=== PATIENT | male | born 1990 | race Caucasian/White ===

== ENCOUNTER → 2022-02-12 | Emergency (ER) | payer SELFPAY ==
[~2022-02-12] VITALS: Ht 172.7 cm; Wt 68.0 kg
[~2022-02-12] MED LIST: CEPH-548 PO; SULF1TAB48 PO; VANCOMYCIN HCL 1,000 MG in NS 250 ML IV ONE
== END | disposition left against medical advice (07) ==
LOC: SED 16:34
DX: L03.116 Cellulitis of left lower limb (principal); L03.115 Cellulitis of right lower limb; Z79.899 Other long term (current) drug therapy
CPT/HCPCS: 99283

== ENCOUNTER 2024-02-28 03:39 | Emergency (ER) | payer OTHER ==
[~2024-02-28] VITALS: Ht 175.3 cm; Wt 81.6 kg
[~2024-02-28 03:39] MED LIST changes: -VANCOMYCIN HCL 1,000 MG in NS 250 ML IV ONE
[2024-02-28 03:55] VITALS: BP_SYST 136; PULSE 85; RESP 18; TEMP 98.5; O2SAT 97
[2024-02-28 08:19] LABS: BARBITURATE, URINE NEGATIVE (NEG <=200); BENZODIAZEPINE, URINE NEGATIVE (NEG <=150); CANNABINOID, URINE NEGATIVE (NEG <=50); COCAINE, URINE NEGATIVE (NEG <=150); METHAMPHETAMINES SCREEN,URINE POSITIVE (NEG <=500); OPIATE, URINE NEGATIVE (NEG <=100); PHENCYCLIDINE SCREEN,URINE NEGATIVE (NEG <=25); UR TRICYCLIC ANTIDEPRESSANTS NEGATIVE (NEG <=300); URINE AMPHETAMINE POSITIVE (NEG <=500); URINE METHADONE NEGATIVE (NEG <=200); URINE OXYCODONE SCREEN NEGATIVE (NEG <=100)
[2024-02-28] MEDS ORDERED: IBUP-1971 PO (08:46)
[2024-02-28 09:06] VITALS: BP_SYST 136; PULSE 73; RESP 17; TEMP 98; O2SAT 96
== END 2024-02-28 09:04 | disposition still patient (30) ==
LOC: SED 03:39
DX: S92.152A Displaced avulsion fracture (chip fracture) of left talus, initial encounter for closed fracture (principal); S00.83XA Contusion of other part of head, initial encounter; Z79.899 Other long term (current) drug therapy; Z79.2 Long term (current) use of antibiotics; V89.2XXA Person injured in unspecified motor-vehicle accident, traffic, initial encounter; Y93.89 Activity, other specified; Y92.89 Other specified places as the place of occurrence of the external cause; Y99.8 Other external cause status
CPT/HCPCS: 70450-TC; 72125-TC; 73700-TC; 80307; 99285